=== PATIENT | female | born 1995 | race Caucasian/White ===

== ENCOUNTER 2020-11-30 15:42 | Emergency (ER) | payer OTHER ==
[~2020-11-30] VITALS: Ht 172.7 cm; Wt 102.1 kg
[2020-11-30 15:43] VITALS: BP 124/75
--- NOTE | 2020-11-30 15:58 | NUR ---
25 Y/O FEMALE STATES SHE HAD AN EAR INFECTION IN LEFT EAR ABOUT A MONTH AGO AND WENT TO URGENT CARE AND BEGAN TAKING ANTIBIOTICS. PT IS ON 2ND COURSE OF ANTIBIOTICS AND NOW SHE BELIEVES IT HAS TRANSFERRED TO RIGHT EAR. PT C/O EAR PAIN 12/10 AND DESCRIBES IT STINGING/STABBING PAIN, NON RADIATING. PT HAS BEEN TAKING IBUPROFEN FOR PAIN WITH SOME RELIEF. PT STATES THAT HER EARS SOUND MUFFLED WITH SLIGHT DECREASE IN HEARING. PT DENIES SWIMMING. PT STATES THERE WAS DISCHARGE EARLIER THIS MONTH BUT NO MORE DISCHARGE. NO REDNESS OR DISCHARGE NOTED. PT IS A/O X4 WITH EVEN AND UNLABORED RESPIRATIONS. PT LAYING IN BED WITH BED IN LOWEST POSITION, BRAKES LOCKED, X1 SIDERAIL UP. PMH: ASTHMA NKDA
--- NOTE | 2020-11-30 16:04 | NUR ---
[facility] AT BEDSIDE
--- NOTE | 2020-11-30 16:24 | NUR ---
EMT AT BEDSIDE FOR IRRIGATION
--- NOTE | 2020-11-30 16:55 | NUR ---
irrigated left ear without any issues
[2020-11-30] MEDS ORDERED: AMOX500C25 PO (16:56)
[2020-11-30] MEDS ORDERED: OFLO5SOL27 LEFT EAR (16:56)
[2020-11-30] MEDS ORDERED: LORA10OD44 PO (16:56)
[2020-11-30 17:13] VITALS: BP 124/75
--- NOTE | 2020-11-30 17:14 | NUR ---
Patient discharged with v/s stable. Written and verbal after care instructions given and explained. Patient alert, oriented and verbalized understanding of instructions. Ambulatory with steady gait. All questions addressed prior to discharge. ID band removed. Patient advised to follow up with PMD. Rx of amoxicillin, loratadine, and ofloxacin given. Patient educated on indication of medication including possible reaction and side effects. Opportunity to ask questions provided and answered.
== END 2020-11-30 17:14 | disposition home or self-care (01) ==
LOC: MED 15:42
DX: H66.92 Otitis media, unspecified, left ear (principal); H60.92 Unspecified otitis externa, left ear; Z79.899 Other long term (current) drug therapy
CPT/HCPCS: 99283